=== PATIENT | female | born 1990 | race Two or more races ===

== ENCOUNTER 2022-05-16 02:34 | Emergency (ER) | payer SELFPAY ==
[~2022-05-16] VITALS: Ht 149.9 cm; Wt 52.2 kg
[2022-05-16 02:44] VITALS: BP 119/71
[2022-05-16] MEDS ORDERED: LIDOCAINE 1% INJ 50 ML MDV IJ ONE (03:00)
[2022-05-16] MEDS ORDERED: TDAP [DIPH/PERTUSSIS/TET] 0.5 ML VIAL IM ONE (03:30)
== END 2022-05-16 03:34 | disposition home or self-care (01) ==
LOC: ER 02:47
DX: S51.811A Laceration without foreign body of right forearm, initial encounter (principal); F41.9 Anxiety disorder, unspecified; Z88.0 Allergy status to penicillin; W26.0XXA Contact with knife, initial encounter; Y93.89 Activity, other specified; Y92.89 Other specified places as the place of occurrence of the external cause; Y99.8 Other external cause status
CPT/HCPCS: 99282; 12002; J3490